=== PATIENT | male | born 1970 | race Hispanic/Latino ===

== ENCOUNTER 2020-01-03 16:56 | Emergency (ER) | payer SELFPAY ==
[~2020-01-03] VITALS: Ht 170.2 cm; Wt 83.0 kg
[2020-01-03 18:26] LABS: URINE BLOOD DIPSTICK NEGATIVE (NEGATIVE); URINE COLOR ORANGE; URINE GLUCOSE - DIPSTICK NEGATIVE (NEGATIVE); URINE KETONE NEGATIVE (NEGATIVE); URINE LEUK ESTERASE NEGATIVE (NEGATIVE); URINE NITRITE - DIPSTICK NEGATIVE (Negative); URINE PROTEIN - DIPSTICK NEGATIVE (NEG-TRACE); URINE UROBILINOGEN - DIPSTICK >=8.0 E.U./dL (0.2)
[2020-01-03 18:27] LABS: URINE BILIRUBIN - DIPSTICK LARGE (NEGATIVE)
[2020-01-03 18:56] LABS: ALBUMIN 2.9 g/dL (3.2-5.0); ALKALINE PHOSPHATASE 235 u/l (38-126); ANION GAP 6 (6-22 (CALC)); BUN 5 mg/dL (9-20); BUN/CREATININE RATIO 9 (12-20 (CALC)); CARBON DIOXIDE 26 mmol/l (22-30); CHLORIDE 105 mmol/l (95-108); CREATININE 0.6 mg/dL (0.7-1.3); GFR > 60 ML/MIN (>=60 (CALC)); GFR FOR AFR.AMER. > 60 ML/MIN (>=60 (CALC)); LIPASE 419 u/l (23-300); POTASSIUM 3.7 mmol/l (3.5-5.1); SGOT/AST 158 u/l (17-59); SODIUM 133 mmol/l (137-146); TOTAL PROTEIN 8.1 g/dL (6.3-8.2)
[2020-01-03 19:09] LABS: RED BLOOD COUNT 2.76 mill/uL (4.70-6.10)
[2020-01-03 19:10] LABS: HEMATOCRIT 30.2 % (39.0-50.0); HEMOGLOBIN 10.2 g/dl (14.0-18.0); LYMPH% 23 % (15-41); MEAN CELL VOLUME 109.4 fL CALC (80.0-100.0); MEAN CORPUSCULAR HGB CONC 33.8 g/dL CAL (32.0-36.0); NEUT% 59 % (42-76); RED CELL DISTRI WIDTH 16.7 % (11.5-15.5)
[2020-01-03 19:12] LABS: BASO% 0 % (0-3); EOS% 0 % (0-8); MONO% 18 % (2-13)
[2020-01-03 19:25] LABS: PLATELET COUNT 55 thou/uL (130-400)
[2020-01-03 19:32] LABS: ACT PARTIAL THROMBO TIME 36.5 SECONDS (20.0-32.5); INTERNATIONAL NORMALIZED RATIO 2.6 RATIO (0.7-1.3); PROTHROMBIN TIME 24.6 SECONDS (9.0-12.5)
[2020-01-03] MEDS ORDERED: TAM75CAP PO (21:12)
[2020-01-03 21:42] VITALS: BP 117/68
== END 2020-01-03 21:42 | disposition home or self-care (01) | DRG 195 ==
LOC: ED 16:56
PROVIDERS: Family Medicine
DX: J10.1 Influenza due to other identified influenza virus with other respiratory manifestations (principal); K74.60 Unspecified cirrhosis of liver; F10.10 Alcohol abuse, uncomplicated; R60.0 Localized edema; Z20.828 Contact with and (suspected) exposure to other viral communicable diseases
CPT/HCPCS: Q9967

== ENCOUNTER 2020-02-18 18:17 | Emergency (ER) | payer SELFPAY ==
[~2020-02-18] VITALS: Ht 170.2 cm; Wt 110.0 kg
[~2020-02-18 18:17] MED LIST: TAM75CAP PO
[2020-02-18] MEDS ORDERED: LASIX20 MG PO (18:39)
[2020-02-18] MEDS ORDERED: SPIRONOLACT50 MG PO (18:40)
[2020-02-18 19:20] LABS: ALKALINE PHOSPHATASE 181 u/l (38-126); ANION GAP 11 (6-22 (CALC)); BUN 11 mg/dL (9-20); BUN/CREATININE RATIO 23 (12-20 (CALC)); CARBON DIOXIDE 23 mmol/l (22-30); CHLORIDE 102 mmol/l (95-108); CREATININE 0.5 mg/dL (0.7-1.3); GFR > 60 ML/MIN (>=60 (CALC)); GFR FOR AFR.AMER. > 60 ML/MIN (>=60 (CALC)); LIPASE 203 u/l (23-300); POTASSIUM 3.8 mmol/l (3.5-5.1); SGOT/AST 69 u/l (17-59); SODIUM 131 mmol/l (137-146)
[2020-02-18 19:24] LABS: BILIRUBIN, TOTAL 15.7 mg/dL (0.0-1.4)
[2020-02-18 19:40] LABS: URINE BLOOD DIPSTICK NEGATIVE (NEGATIVE); URINE GLUCOSE - DIPSTICK NEGATIVE (NEGATIVE); URINE KETONE NEGATIVE (NEGATIVE); URINE LEUK ESTERASE NEGATIVE (NEGATIVE); URINE NITRITE - DIPSTICK NEGATIVE (Negative); URINE PH 6.5 (4.5-8.0); URINE PROTEIN - DIPSTICK NEGATIVE (NEG-TRACE)
[2020-02-18 19:42] LABS: URINE BILIRUBIN - DIPSTICK LARGE (NEGATIVE); URINE COLOR ORANGE
[2020-02-18 19:43] LABS: HEMATOCRIT 29.3 % (39.0-50.0); HEMOGLOBIN 10.4 g/dl (14.0-18.0); IMMATURE GRANULOCYTES 0.9 % (0.0-5.0); MEAN CELL VOLUME 108.1 fL CALC (80.0-100.0); MEAN CORPUSCULAR HGB 38.4 pG CALC (26.0-32.0); MEAN CORPUSCULAR HGB CONC 35.5 g/dL CAL (32.0-36.0); NEUT# 6.91 thou/uL (1.82-7.42); RED BLOOD COUNT 2.71 mill/uL (4.70-6.10); RED CELL DISTRI WIDTH 15.7 % (11.5-15.5)
[2020-02-18 21:46] VITALS: BP 133/72
== END 2020-02-18 21:46 | disposition short-term general hospital (02) | DRG 434 ==
LOC: ED 18:17
PROVIDERS: Family Medicine
DX: K70.30 Alcoholic cirrhosis of liver without ascites (principal); K72.90 Hepatic failure, unspecified without coma; F10.10 Alcohol abuse, uncomplicated; S31.21XA Laceration without foreign body of penis, initial encounter; X58.XXXA Exposure to other specified factors, initial encounter; Z20.828 Contact with and (suspected) exposure to other viral communicable diseases